=== PATIENT | female | born 1980 | race African-American/Black ===

== ENCOUNTER 2016-03-14 14:12 | Emergency (ER) ==
[2016-03-14 14:12] VITALS: BMI 30.2
[2016-03-14 14:21] VITALS: BP 144/93; TEMP 97.4
[2016-03-14] MEDS ORDERED: ZOFRAN 4 MG/2 ML IM STA (14:31)
[2016-03-14] MEDS ORDERED: TORADOL IM STA (14:31)
[2016-03-14] MEDS ORDERED: MORPHINE 4 MG/ML SYRINGE IM STA (14:31)
[2016-03-14 14:42] LABS: BASOPHILS % (AUTO) 0.5 % (0.0-3.0); EOSINOPHILS # (AUTO) 0.1 K/ul (0.0-0.7); EOSINOPHILS % (AUTO) 1.5 % (0.0-7.0); HEMATOCRIT 43.9 % (37.0-47.0); HEMOGLOBIN 14.7 g/dl (12.0-16.0); IMMATURE GRANULOCYTE % (AUTO) 0.5 % (0.0-5.0); LYMPHOCYTES # (AUTO) 3.7 K/uL (0.60-3.4); LYMPHOCYTES % (AUTO) 45.5 (10.0-50.0); MEAN CORPUSCULAR HEMOGLOBIN 30.4 pg (27.0-31.0); MEAN CORPUSCULAR HGB CONC 33.5 (31.8-35.4); MEAN CORPUSCULAR VOLUME 90.9 fl (81.0-99.0); MONOCYTES # (AUTO) 0.7 K/uL (0.4-2.0); MONOCYTES % (AUTO) 8.2 (0-10); NEUTROPHILS # (AUTO) 3.6 K/ul (2.0-6.9); NEUTROPHILS % (AUTO) 43.8; PLATELET COUNT 278 10^3/uL (140-440); RED BLOOD COUNT 4.83 10^6/ul (4.20-5.40); WHITE BLOOD COUNT 8.13 K/ul (4.6-10.2)
[2016-03-14 14:51] LABS: BILIRUBIN,URINE Negative (NEGATIVE); KETONES,URINE Negative (NEGATIVE); LEUKOCYTE ESTERASE ,URINE Negative (NEGATIVE); NITRITE,URINE Negative (NEGATIVE); PROTEIN,URINE Negative (NEGATIVE); URINE, BLOOD 3+ (NEGATIVE)
[2016-03-14 14:52] LABS: ADD URINE MICROSCOPIC YES
[2016-03-14 14:54] LABS: URINE PREGNANCY INTERNAL QC INTERNAL QC VALID
[2016-03-14 15:03] LABS: ALBUMIN/GLOBULIN RATIO 1.14; ANION GAP 13.2; BILIRUBIN,TOTAL 0.32 mg/dL (0.00-1.20); BUN/CREATININE RATIO 13.08; CALCIUM 9.3 mg/dL (8.2-10.2); CREATININE 1.07 mg/dL (0.60-1.30); POTASSIUM 4.2 mmol/L (3.5-5.10); TOTAL PROTEIN 7.5 g/dL (6.4-8.2)
--- NOTE | 2016-03-14 15:22 | CT ---
EXAM: CT Abdomen without contrast. CT Pelvis without contrast. HISTORY: Left flank pain. Left lower quadrant pain. COMPARISON: 09/17/2014. TECHNIQUE: Multiple axial images of the abdomen and pelvis were obtained without intravenous contra st. Images were reformatted in the coronal plane. FINDINGS: Please note that evaluation of the abdominal and pelvic structures is limited due to lack of intravenous contrast. The lung bases are clear. No acute osseous abnormality identified. The liver, gallbladder, pancreas, spleen, and adrenal glands demonstrate normal contour. Right kidn ey appears normal. There is mild left hydronephrosis/hydroureter secondary to a 0.3-0.4 cm obstruct ing calculus in the distal left ureter just above ureteral vesicle junction. Additional 0.2 cm left renal calculus is present. Small hiatal hernia noted. There is no evidence for bowel obstruction. The appendix is normal. Ve ntral abdominal wall mesh noted above the level of the umbilicus. There is a small fat-containing h ernia near the level of the umbilicus. Uterus demonstrates normal contour. Urinary bladder is andreia apsed. No free fluid or free air identified. IMPRESSION: A 0.3-0.4 cm obstructing calculus in the distal left ureter causing mild left hydronephrosis. Addit ional left nephrolithiasis.
[2016-03-14] MEDS ORDERED: FLOMAX PO STA (15:25)
--- NOTE | 2016-03-14 15:26 | ED.PDOC ---
General ED Provider: Dr. KOTA VARGHESE-ER Chief Complaint: Abdominal Pain Stated Complaint: i think i have a kidney stone Time Seen by Physician: 14:15 Mode of Arrival: Walk-In Information Source: Patient Exam Limitations: No limitations Primary Care Provider: GILLES HORN Nursing and Triage Documentation Reviewed and Agree: Yes GI Complaint Exam - Abdominal Pain Complaint/Exam Onset: Gradual Duration: several hours Symptoms Are: Still present Timing: Constant Initial Severity: Mild Current Severity: Moderate Location of Pain: Discrete, LLQ Radiates To: Reports: Back, Flank Character: Reports: Dull, Aching Aggravating: Reports: None Alleviating: Reports: None Associated Signs and Symptoms: Reports: Back pain. Denies: Diaphoresis, Fever, Cough, Chest pain, Dizziness, Constipation, Blood in stool, Dysuria, Urinary frequency, Decreased urine output, Decreased appetite, Vaginal bleeding, Vaginal discharge, Nausea, Vomiting, Diarrhea, Sore throat, Decreased activity AAA Risk Factors: Reports: None Cardiac Risk Factors: Reports: None Ectopic Risk Factors: Reports: None Ovarian Torsion Risk Factors: Reports: Reproductive age Related Surgical History: Reports: Kidney Stones Patient Rh Status: Unknown Abdominal Findings: Present: None Differential Diagnoses: Renal Colic, Ureteral Stone Review of Systems - Review Of Systems Constitutional: Reports: No symptoms Eyes: Reports: No symptoms Ears, Nose, Mouth, Throat: Reports: No symptoms Respiratory: Reports: No symptoms Cardiac: Reports: No symptoms GI: Reports: Abdominal pain : Reports: Flank pain, Pain, Urgency Musculoskeletal: Reports: No symptoms Skin: Reports: No symptoms Neurological: Reports: No symptoms Endocrine: Reports: No symptoms Hematologic/Lymphatic: Reports: No symptoms All Other Systems: Reviewed and Negative Past Medical History - Past Medical History Endocrine: Reports: Unknown Cardiovascular: Reports: Unknown Respiratory: Reports: Unknown Hematological: Reports: Unknown Gastrointestinal: Reports: Unknown Genitourinary: Reports: Unknown Neuro/Psych: Reports: Unknown Musculoskeletal: Reports: Unknown Cancer: Reports: Unknown Last Menstrual Period: now - Surgical History General Surgical History: Reports: Unknown - Family History Family History: Reports: Unknown - Social History Smoking Status: Current some day smoker Hx Substance Use: No Alcohol Screening: None Lives: With family Physical Exam - Physical Exam Appearance: Well-appearing, No pain distress, Well-nourished Pain Distress: Moderate Eyes: MAR, EOMI, Conjunctiva clear ENT: Ears normal Neck: Supple Respiratory: Airway patent, Breath sounds clear, Breath sounds equal, Respirations nonlabored Cardiovascular: RRR GI/: Soft, Nontender, No masses, Bowel sounds normal, No Organomegaly Musculoskeletal: Normal strength, ROM intact, No edema, No calf tenderness Skin: Warm Neurological: Sensation intact, Motor intact, Reflexes intact, Cranial nerves intact, Alert, Oriented Psychiatric: Affect appropriate, Mood appropriate Re-Evaluation - Re-Evaluation Time of Re-Evaluation: 15:30 Status: Improved Vital Signs Stable: Yes Pain Level: 1 Appearance: NAD Lungs: Clear Skin: Warm and Dry Neuro: Alert and Oriented X3 CV: RRR Critical Care Note - Critical Care Note Total Time (mins): 0 Course - Course Hematology/Chemistry: 03/14/16 14:35 03/14/16 14:35 Orders, Labs, Meds: Lab Review 03/14/16 03/14/16 14:20 14:35 WBC 8.13 RBC 4.83 Hgb 14.7 Hct 43.9 MCV 90.9 MCH 30.4 MCHC 33.5 RDW Coeff of Aftab 12.8 Plt Count 278 Immature Gran % (Auto) 0.5 Neut % (Auto) 43.8 Lymph % (Auto) 45.5 [place] % (Auto) 8.2 Eos % (Auto) 1.5 Baso % (Auto) 0.5 Immature Gran # (Auto) 0.0 Neut # 3.6 Lymph # 3.7 H [place] # 0.7 Eos # 0.1 Baso # 0.0 Sodium 140 Potassium 4.2 Chloride 105 Carbon Dioxide 26 Anion Gap 13.2 BUN 14 Creatinine 1.07 Estimated GFR (MDRD) 72.00 BUN/Creatinine Ratio 13.08 Glucose 93 Calcium 9.3 Total Bilirubin 0.32 AST 16 ALT 14 Alkaline Phosphatase 53 Total Protein 7.5 Albumin 4.0 Globulin 3.5 Albumin/Globulin Ratio 1.14 Amylase 64 Lipase 19 Urine Color Yellow Urine Clarity Clear Urine pH 6.0 Ur Specific [place] 1.025 Urine Protein Negative Urine Glucose (UA) Negative Urine Ketones Negative Urine Blood 3+ Urine Nitrite Negative Urine Bilirubin Negative Urine Urobilinogen 0.2 Ur Leukocyte Esterase Negative Urine Microscopic RBC 50-100 Ur Squamous Epith Cells 5-10 Urine Test Negative Orders Category Date Time Status Strain Urine [ED STRAIN URINE] .ONCE EMERGENCY 03/14/16 15:27 Active AMYLASE Stat LAB 03/14/16 14:35 Completed CBC W/ AUTO DIFF Stat LAB 03/14/16 14:35 Completed COMPREHENSIVE METABOLIC PANEL Stat LAB 03/14/16 14:35 Completed LIPASE Stat LAB 03/14/16 14:35 Completed URINALYSIS C & S IF INDICATED Stat LAB 03/14/16 14:20 Completed URINE Stat LAB 03/14/16 14:20 Completed Ketorolac Tromethamine [Toradol] MEDS 03/14/16 14:31 Discontinued 60 mg IM ONCE STA Morphine Sulfate [Morphine 4 mg/ml Syringe] MEDS 03/14/16 14:31 Discontinued 4 mg IM ONCE STA Ondansetron HCl/Pf [Zofran 4 mg/2 ml] MEDS 03/14/16 14:31 Discontinued 4 mg IM ONCE STA Tamsulosin HCl [Flomax] MEDS 03/14/16 15:25 Stat 0.4 mg PO ONCE STA CT ABDOMEN/PELVIS WO CONTRAST Stat RADS 03/14/16 14:31 Completed Medications Generic Name Dose Route Start Last Admin Trade Name Freq PRN Reason Stop Dose Admin Tamsulosin HCl 0.4 mg 03/14/16 15:25 Flomax PO 03/14/16 15:26 ONCE STA Discontinued Medications Generic Name Dose Route Start Last Admin Trade Name Freq PRN Reason Stop Dose Admin Ketorolac Tromethamine 60 mg 03/14/16 14:31 03/14/16 14:39 Toradol IM 03/14/16 14:32 60 mg ONCE STA Administration Morphine Sulfate 4 mg 03/14/16 14:31 03/14/16 14:42 Morphine 4 Mg/Ml Syringe IM 03/14/16 14:32 4 mg ONCE STA Administration Ondansetron HCl 4 mg 03/14/16 14:31 03/14/16 14:42 Zofran 4 Mg/2 Ml IM 03/14/16 14:32 4 mg ONCE STA Administration Vital Signs: Temp Pulse Resp BP Pulse Ox 03/14/16 14:12 97.4 F L 89 22 144/93 H 98 Departure - Departure Time of Disposition: 15:30 Disposition: HOME SELF-CARE Discharge Problem: Kidney stone on left side Instructions: Kidney Stones (ED), Renal Colic (ED), How to Strain Your Urine ( ED) Condition: Good Pt referred to PMD for follow-up: Yes Additional Instructions: norco 7.5mg q 4hrs prn pain #15--flomax 0.4mg q daily #3--fluids..strain all urine--recheck wtih pcp on tuesday if not passed Allergies/Adverse Reactions: Allergies amoxicillin Adverse Reaction (Verified 03/14/16 14:17) Home Medications: Ambulatory Orders 1 [No Reported Medications] 03/14/16 Disposition Discussed With: Patient, Family
== END 2016-03-14 15:49 | disposition home or self-care (01) ==
LOC: ED 14:12
DX: N20.0 Calculus of kidney (principal); F17.210 Nicotine dependence, cigarettes, uncomplicated; Z87.442 Personal history of urinary calculi
CPT/HCPCS: 36415; 80053; 81001; 81025; 82150; 83690; 85025; 96372; 99283

== ENCOUNTER 2017-02-20 11:02 | Emergency (ER) ==
[2017-02-20 11:09] VITALS: TEMP 98.2; BMI 31.7
[2017-02-20 11:34] VITALS: BP 121/88
[2017-02-20 11:46] LABS: BASOPHILS % (AUTO) 0.3 % (0.0-3.0); EOSINOPHILS # (AUTO) 0.1 K/ul (0.0-0.7); EOSINOPHILS % (AUTO) 1.4 % (0.0-7.0); HEMATOCRIT 43.2 % (37.0-47.0); HEMOGLOBIN 15.2 g/dl (12.0-16.0); IMMATURE GRANULOCYTE % (AUTO) 0.6 % (0.0-5.0); LYMPHOCYTES # (AUTO) 1.4 K/uL (0.60-3.4); LYMPHOCYTES % (AUTO) 38.4 (10.0-50.0); MEAN CORPUSCULAR HEMOGLOBIN 31.3 pg (27.0-31.0); MEAN CORPUSCULAR HGB CONC 35.2 (31.8-35.4); MEAN CORPUSCULAR VOLUME 88.9 fl (81.0-99.0); MONOCYTES # (AUTO) 0.5 K/uL (0.4-2.0); MONOCYTES % (AUTO) 12.4 (0-10); NEUTROPHILS # (AUTO) 1.7 K/ul (2.0-6.9); NEUTROPHILS % (AUTO) 46.9; PLATELET COUNT 231 10^3/uL (140-440); RED BLOOD COUNT 4.86 10^6/ul (4.20-5.40); WHITE BLOOD COUNT 3.62 K/ul (4.6-10.2)
--- NOTE | 2017-02-20 11:48 | ED.PDOC ---
General ED Provider: Dr. CARSON CERNA Chief Complaint: Chest Wall Injury/Pain Stated Complaint: Patient complains of epigastric pain radiating to the back today that started this morning now gone. Yesterday has > 10 eposides of vomiting and diarrhea. Time Seen by Physician: 11:30 Mode of Arrival: Walk-In Information Source: Patient Exam Limitations: No limitations Primary Care Provider: GILLES HORN Nursing and Triage Documentation Reviewed and Agree: Yes GI Complaint Exam - Vomiting/Diarrhea Complaint/Exam Onset/Duration: 3 days Symptoms Are: Still present (but better) Episodes of Vomiting over last 24 Hours: 10 Episodes of Diarrhea Over Last 24 Hours: 10 Initial Severity: Severe Current Severity: Moderate Character of Vomiting: Reports: Non-bilious Character of Diarrhea: Reports: Watery Aggravating: Reports: Food Alleviating: Reports: None Associated Signs and Symptoms: Reports: Cramping. Denies: Dizziness, Light- headedness, Melena, Hematemesis, Fever, Abdominal pain Recent Positive Test: No Use of Oral Contraceptives: No Use of Depoprovera: No Non-GI Risk Factors: Reports: None Surgical Obstruction Risk Factors: Reports: None Related Surgical History: Reports: None Abdominal Findings: Present: None Rectal Exam: Present: Normal Findings [place] Respirations Present: Yes Differential Diagnoses: Viral Gastroenteritis Review of Systems - Review Of Systems Constitutional: Reports: No symptoms Eyes: Reports: No symptoms Ears, Nose, Mouth, Throat: Reports: No symptoms Respiratory: Reports: No symptoms Cardiac: Reports: No symptoms GI: Reports: No symptoms : Reports: No symptoms Musculoskeletal: Reports: No symptoms Skin: Reports: No symptoms Neurological: Reports: No symptoms Endocrine: Reports: No symptoms Hematologic/Lymphatic: Reports: No symptoms All Other Systems: Reviewed and Negative Past Medical History - Past Medical History Previously Healthy: Yes Endocrine: Reports: None Cardiovascular: Reports: None Respiratory: Reports: None Hematological: Reports: None Gastrointestinal: Reports: GERD Genitourinary: Reports: None Neuro/Psych: Reports: None Musculoskeletal: Reports: None Cancer: Reports: None Last Menstrual Period: last month - Surgical History General Surgical History: Reports: None - Family History Family History: Reports: None - Social History Smoking Status: Current every day smoker, Light tobacco smoker Hx Substance Use: No Alcohol Screening: None Physical Exam - Physical Exam Appearance: Ill-appearing, Obese Ill-appearing: Mild Pain Distress: None Eyes: MAR, EOMI, Conjunctiva clear ENT: Ears normal Neck: Supple Respiratory: Airway patent, Breath sounds clear, Breath sounds equal, Respirations nonlabored Cardiovascular: RRR, Pulses normal, No rub, No murmur GI/: Soft, Nontender, No masses, Bowel sounds normal, No Organomegaly Musculoskeletal: Normal strength, ROM intact, No edema, No calf tenderness Skin: Warm, Dry, Normal color Neurological: Sensation intact, Motor intact, Reflexes intact, Alert, Oriented Psychiatric: Affect appropriate Critical Care Note - Critical Care Note Total Time (mins): 0 Course - Course Hematology/Chemistry: 02/20/17 11:40 02/20/17 11:40 Orders, Labs, Meds: Lab Review 02/20/17 02/20/17 02/20/17 11:15 11:15 11:40 WBC 3.62 L RBC 4.86 Hgb 15.2 Hct 43.2 MCV 88.9 MCH 31.3 H MCHC 35.2 RDW Coeff of Aftab 12.6 Plt Count 231 Immature Gran % (Auto) 0.6 Neut % (Auto) 46.9 Lymph % (Auto) 38.4 [place] % (Auto) 12.4 H Eos % (Auto) 1.4 Baso % (Auto) 0.3 Immature Gran # (Auto) 0.0 Neut # 1.7 L Lymph # 1.4 [place] # 0.5 Eos # 0.1 Baso # 0.0 Sodium Potassium Chloride Carbon Dioxide Anion Gap BUN Creatinine Estimated GFR (MDRD) BUN/Creatinine Ratio Glucose Calcium Total Bilirubin AST ALT Alkaline Phosphatase Total Protein Albumin Globulin Albumin/Globulin Ratio Urine Color Yellow Urine Clarity Slightly Urine pH 6.0 Ur Specific [place] 1.025 Urine Protein Trace Urine Glucose (UA) Negative Urine Ketones Negative Urine Blood Trace-intact Urine Nitrite Negative Urine Bilirubin Negative Urine Urobilinogen 0.2 Ur Leukocyte Esterase Negative Urine Microscopic RBC 2-5 Urine Microscopic WBC 2-5 Ur Squamous Epith Cells 20-30 Influenza A (Rapid) Negative Influenza B (Rapid) Negative 02/20/17 11:40 WBC RBC Hgb Hct MCV MCH MCHC RDW Coeff of Aftab Plt Count Immature Gran % (Auto) Neut % (Auto) Lymph % (Auto) [place] % (Auto) Eos % (Auto) Baso % (Auto) Immature Gran # (Auto) Neut # Lymph # [place] # Eos # Baso # Sodium 138 Potassium 3.4 L Chloride 104 Carbon Dioxide 24 Anion Gap 13.4 BUN 9 Creatinine 0.80 Estimated GFR (MDRD) 100.00 BUN/Creatinine Ratio 11.25 Glucose 137 H Calcium 8.9 Total Bilirubin 0.43 AST 15 ALT 14 Alkaline Phosphatase 49 Total Protein 7.2 Albumin 3.3 L Globulin 3.9 Albumin/Globulin Ratio 0.85 Urine Color Urine Clarity Urine pH Ur Specific [place] Urine Protein Urine Glucose (UA) Urine Ketones Urine Blood Urine Nitrite Urine Bilirubin Urine Urobilinogen Ur Leukocyte Esterase Urine Microscopic RBC Urine Microscopic WBC Ur Squamous Epith Cells Influenza A (Rapid) Influenza B (Rapid) Orders Category Date Time Status ED IV/MEDIPORT/POWERPORT .ONCE EMERGENCY 02/20/17 11:25 Active CBC W/ AUTO DIFF Stat LAB 02/20/17 11:40 Completed CMP [COMPREHENSIVE METABOLIC PANEL] Stat LAB 02/20/17 11:40 Completed MOLECULAR GROUP A STREP Stat LAB 02/20/17 11:15 Results RAPID FLU A/B Stat LAB 02/20/17 11:15 Completed STREP SCREEN Stat LAB 02/20/17 11:15 Results URINALYSIS C & S IF INDICATED Stat LAB 02/20/17 11:15 Completed 0.9 % Sodium Chloride [Saline Flush] MEDS 02/20/17 11:25 Discontinued 1 syr IVF PRN PRN Ondansetron HCl/Pf [Zofran 4 mg/2 ml] MEDS 02/20/17 11:58 Discontinued 4 mg IVP ONCE STA Potassium Chloride [K-Dur] MEDS 02/20/17 12:59 Discontinued 20 meq PO ONCE STA Sodium Chloride 0.9% [Sodium Chloride] 1,000 ml MEDS 02/20/17 11:58 Discontinued IV BOLUS Medications Discontinued Medications Generic Name Dose Route Start Last Admin Trade Name Freq PRN Reason Stop Dose Admin Sodium Chloride 1,000 mls @ 1,000 mls/hr 02/20/17 11:58 02/20/17 12:09 Sodium Chloride IV 02/20/17 12:57 1,000 mls/hr BOLUS STA Administration Ondansetron HCl 4 mg 02/20/17 11:58 02/20/17 12:09 Zofran 4 Mg/2 Ml IVP 02/20/17 11:59 4 mg ONCE STA Administration Potassium Chloride 20 meq 02/20/17 12:59 02/20/17 13:07 K-Dur PO 02/20/17 13:00 20 meq ONCE STA Administration Sodium Chloride 1 syr 02/20/17 11:25 02/20/17 12:09 Saline Flush IVF 1 syr PRN PRN Administration To flush IV Vital Signs: Temp Pulse Resp BP Pulse Ox 02/20/17 11:33 75 121/88 99 02/20/17 11:03 98.2 F 89 20 145/100 H 97 Departure - Departure Time of Disposition: 13:30 Disposition: HOME SELF-CARE Discharge Problem: Acute gastroenteritis Instructions: Gastroenteritis (ED) Condition: Stable Pt referred to PMD for follow-up: Yes Additional Instructions: Push fluids Follow up with PCP in 3 days Prescriptions: Dicyclomine HCl [Bentyl] 10 mg PO TID PRN #20 capsule PRN Reason: Abdominal Pain Ondansetron HCl [Zofran Tab] 4 mg PO Q8H PRN #14 tablet PRN Reason: Nausea / Vomiting Allergies/Adverse Reactions: Allergies amoxicillin Adverse Reaction (Verified 03/14/16 14:17) Penicillins Adverse Reaction (Verified 02/20/17 11:11) Home Medications: Ambulatory Orders Dicyclomine HCl [Bentyl] 10 mg PO TID PRN #20 capsule 02/20/17 Ondansetron HCl [Zofran Tab] 4 mg PO Q8H PRN #14 tablet 02/20/17 Disposition Discussed With: Patient
[2017-02-20] MEDS ORDERED: SODIUM CHLORIDE 1,000 ML IV STA (11:58)
[2017-02-20] MEDS ORDERED: ZOFRAN 4 MG/2 ML IVP STA (11:58)
[2017-02-20 12:09] LABS: ALBUMIN 3.3 g/dL (3.4-5.0); ALBUMIN/GLOBULIN RATIO 0.85; ANION GAP 13.4; BILIRUBIN,TOTAL 0.43 mg/dL (0.00-1.20); BUN/CREATININE RATIO 11.25; CALCIUM 8.9 mg/dL (8.2-10.2); CREATININE 0.8 mg/dL (0.60-1.30); POTASSIUM 3.4 mmol/L (3.5-5.10); TOTAL PROTEIN 7.2 g/dL (6.4-8.2)
[2017-02-20 12:10] LABS: BILIRUBIN,URINE Negative (NEGATIVE); KETONES,URINE Negative (NEGATIVE); LEUKOCYTE ESTERASE ,URINE Negative (NEGATIVE); NITRITE,URINE Negative (NEGATIVE); PROTEIN,URINE Trace (NEGATIVE); URINE, BLOOD Trace-intact (NEGATIVE)
[2017-02-20 12:12] LABS: ADD URINE MICROSCOPIC YES
[2017-02-20 12:28] LABS: FLU INTERNAL QC INTERNAL QC VALID; RAPID FLU A NEGATIVE (NEGATIVE); RAPID FLU B NEGATIVE (NEGATIVE)
[2017-02-20] MEDS ORDERED: K-DUR PO STA (12:59)
== END 2017-02-20 13:33 | disposition home or self-care (01) ==
LOC: ED 11:02
DX: K52.9 Noninfective gastroenteritis and colitis, unspecified (principal); F17.210 Nicotine dependence, cigarettes, uncomplicated
CPT/HCPCS: 36415; 80053; 81001; 85025; 87651; 87804; 87880; 96361; 96374; 99283

== ENCOUNTER 2017-03-18 07:29 | Outpatient (CLI) ==
--- NOTE | 2017-03-18 08:47 | US ---
Exam: Wesley-scale and color Doppler ultrasonographic evaluation of the abdomen. Limited abdominal ul trasound Comparison: CT abdomen pelvis performed 03/14/2016. Reason for exam: Abdominal pain after eating. FINDINGS: The liver measures approximately 10.5 cm in length with a heterogeneous appearing echotext ure. There is normal antegrade portal venous flow without ductal dilatation or perihepatic free fluid. There is a 1.54 x 2.01 x 1.75 cm region of the hypoechoic echogenicity adjacent to the gallbladder th at likely represents focal fatty sparing. The gallbladder wall measures 0.26 cm which is within normal limits. The gallbladder wall is irregul kong shaped with a pharyngeal cap and appears folded on itself. No obvious intraluminal sludge, stone or polyp. The common bile duct measures 0.44 cm without evidence of intraluminal stone or polyp. The partially imaged pancreas appears grossly unremarkable. The right kidney measures approximately 9.84 x 3.88 x 4.50 cm with normal appearing echotexture, no h ydronephrosis, and no nephrolithiasis. Impression: 1. Heterogeneous appearing hepatic echotexture with a 2 cm region of hypo echogenicity adjacent to t he gallbladder. Imaging findings likely represent focal fatty sparing although the evaluation is inc omplete. If clinical concern exists, CT examination of the abdomen pelvis with contrast or MRI may b e performed for further characterization. 2. Otherwise, no acute ultrasonographic findings are seen within the partially imaged abdomen.
== END 2017-03-18 07:30 | disposition home or self-care (01) ==
LOC: RAD 07:29
PROVIDERS: ATTEND Internal Medicine
DX: R10.9 Unspecified abdominal pain (principal); K21.9 Gastro-esophageal reflux disease without esophagitis

== ENCOUNTER 2017-03-23 08:05 | Outpatient (CLI) ==
--- NOTE | 2017-03-23 10:22 | NM ---
EXAM: Hepatobiliary scan HISTORY: Nausea and abdominal pain. COMPARISON: None of this type. PROCEDURE: The patient was injected with 5.3 mCi of 99mTc mebrofenin intravenously. Images of the ab domen were obtained at 5 min intervals for 30 minutes. Additional images were obtained at 45 minute s and 1 hour. The patient was then injected with 1.8 mcg of CCK by slow infusion while images of the gallbladder were obtained to assess gallbladder contraction. The patient reported mild nausea with C CK. FINDINGS: Sequential images demonstrate normal uptake of tracer into the liver. Activity is seen in the intrahepatic biliary ducts at about 10 minutes. The activity appears in the gallbladder at about 15 minutes. Subsequent images demonstrate increasing activity in the gallbladder. Activity first a ppears in the small bowel following CCK. The gallbladder ejection fraction is 65% . IMPRESSION: 1.Normal hepatobiliary scan. 2.The gallbladder ejection fraction is 65% (normal).
== END 2017-03-23 08:06 | disposition home or self-care (01) ==
LOC: RAD 08:05
PROVIDERS: ATTEND Internal Medicine
DX: R10.9 Unspecified abdominal pain (principal); R11.2 Nausea with vomiting, unspecified

== ENCOUNTER 2017-08-14 03:15 | Emergency (ER) ==
[2017-08-14 03:28] VITALS: BP 124/88; TEMP 97.4; BMI 33.1
[2017-08-14] MEDS ORDERED: GI COCKTAIL PO STA (03:53)
--- NOTE | 2017-08-14 04:15 | ED.PDOC ---
General ED Provider: Dr. CARSON CERNA Chief Complaint: Chest Pain Stated Complaint: 2 hour history of lower mid chest and epigastric area that started while she was sleeping. Pain radiates to the back. Time Seen by Physician: 03:30 Mode of Arrival: Walk-In Information Source: Patient Primary Care Provider: ALAN HAYNES Nursing and Triage Documentation Reviewed and Agree: Yes Reviewed sepsis parameters & appropriate labs ordered?: No System Inflammatory Response Syndrome: Not Applicable Sepsis Protocol: For patient's 13 years and over: Temp is 96.8 and below OR 101 and greater Pulse >90 BPM Resp >20/minute Acutely Altered Mental Status Are patient's symptoms suggestive of a new infection, such as: -Pneumonia -Skin, Soft Tissue -Endocarditis -UTI -Bone, Joint Infection -Implantable Device -Acute Abdominal Infection -Wound Infection -Meningitis -Blood Stream Catheter Infection -Unknown Cardiovascular Complaint Exam - Chest Pain Complaint/Exam Onset: Sudden Duration: 2 hours Symptoms Are: Still present Timing: Constant Initial Severity: Moderate Current Severity: Moderate Location: Reports: Lower sternal Pain Radiates: Reports: Back Character: Reports: Burning Aggravating: Reports: None Alleviating: Reports: None Associated Signs and Symptoms: Reports: Nausea, Abdominal pain. Denies: Diaphoresis, Vomiting, Fever, Palpitations, Cough, Hemoptysis, Back pain, Dizziness, Short of air, Calf pain, Calf swelling TAD Risk Factors: Reports: None Pulmonary Embolism Risk Factors: Reports: None Recent Stress Test: No Recent Echo/LV Function: No JVD Present: No Subcutaneous Emphysema Present: No Diminshed Breath Sounds: No If Risk Factors for AMI/ACS Consider: EKG, Cardiac Enzymes, Aspirin Differential Diagnoses: Acute RI, GI Diseasae, Pulmonary Embolism Quality Indicators For Acute RI or Cardiac Chest Pain: EKG in 10min. Review of Systems - Review Of Systems Constitutional: Reports: No symptoms Eyes: Reports: No symptoms Ears, Nose, Mouth, Throat: Reports: No symptoms Respiratory: Reports: No symptoms Cardiac: Reports: Chest pain GI: Reports: Abdominal pain, Nausea : Reports: No symptoms Musculoskeletal: Reports: No symptoms Skin: Reports: No symptoms Neurological: Reports: No symptoms Endocrine: Reports: No symptoms Hematologic/Lymphatic: Reports: No symptoms All Other Systems: Reviewed and Negative Past Medical History - Past Medical History Previously Healthy: Yes Endocrine: Reports: None Cardiovascular: Reports: None Respiratory: Reports: None Hematological: Reports: None Gastrointestinal: Reports: GERD Genitourinary: Reports: None Neuro/Psych: Reports: None Musculoskeletal: Reports: None Cancer: Reports: None Last Menstrual Period: 1 WEEK AGO - Surgical History General Surgical History: Reports: None - Family History Family History: Reports: None - Social History Smoking Status: Current every day smoker, Light tobacco smoker Hx Substance Use: No Alcohol Screening: Occasionally - Immunizations Tetanus Shot up to Date: Yes Physical Exam - Physical Exam Appearance: Ill-appearing, Obese Ill-appearing: Mild Pain Distress: Moderate Eyes: MAR, EOMI, Conjunctiva clear Neck: Supple Respiratory: Airway patent, Breath sounds clear, Breath sounds equal, Respirations nonlabored Cardiovascular: RRR, Pulses normal, No rub, No murmur GI/: Soft, Tender (mild epigastric area tenderness ) Skin: Warm, Dry Neurological: Alert, Oriented Psychiatric: Anxious Re-Evaluation - Re-Evaluation Time of Re-Evaluation: 04:18 Status: Improved (with GI cocktail ) Vital Signs Stable: Yes Pain Level: better Appearance: NAD Critical Care Note - Critical Care Note Total Time (mins): 30 Course - Course Hematology/Chemistry: 08/14/17 03:55 08/14/17 03:55 Orders, Labs, Meds: Lab Review 08/14/17 08/14/17 08/14/17 03:55 03:55 03:55 WBC 8.37 RBC 4.41 Hgb 13.9 Hct 39.7 MCV 90.0 MCH 31.5 H MCHC 35.0 RDW Coeff of Aftab 12.6 Plt Count 224 Immature Gran % (Auto) 0.4 Neut % (Auto) 51.8 Lymph % (Auto) 37.2 [place] % (Auto) 8.0 Eos % (Auto) 2.0 Baso % (Auto) 0.6 Immature Gran # (Auto) 0.0 Neut # (Auto) 4.3 Lymph # (Auto) 3.1 [place] # (Auto) 0.7 Eos # (Auto) 0.2 Baso # (Auto) 0.1 D-Dimer (Manual) Sodium 137 Potassium 3.8 Chloride 103 Carbon Dioxide 23 Anion Gap 14.8 BUN 11 Creatinine 0.77 Estimated GFR (MDRD) 103.00 BUN/Creatinine Ratio 14.28 Glucose 122 H Calcium 8.9 Total Bilirubin 0.3 AST 16 ALT 16 Alkaline Phosphatase 54 Total Creatine Kinase 105 Troponin I < 0.0100 B-Natriuretic Peptide < 10 Total Protein 6.8 Albumin 3.3 L Globulin 3.5 Albumin/Globulin Ratio 0.94 08/14/17 04:20 WBC RBC Hgb Hct MCV MCH MCHC RDW Coeff of [place]ftab Plt Count Immature Gran % (Auto) Neut % (Auto) Lymph % (Auto) [place] % (Auto) Eos % (Auto) Baso % (Auto) Immature Gran # (Auto) Neut # (Auto) Lymph # (Auto) [place] # (Auto) Eos # (Auto) Baso # (Auto) D-Dimer (Manual) 187.79 Sodium Potassium Chloride Carbon Dioxide Anion Gap BUN Creatinine Estimated GFR (MDRD) BUN/Creatinine Ratio Glucose Calcium Total Bilirubin AST ALT Alkaline Phosphatase Total Creatine Kinase Troponin I B-Natriuretic Peptide Total Protein Albumin Globulin Albumin/Globulin Ratio Orders Category Date Time Status EKG-(ED ONLY) Stat CARDIO 08/14/17 03:44 Ordered B-TYPE NATRIURETIC PEPTIDE Stat LAB 08/14/17 03:55 Completed CBC W/ AUTO DIFF Stat LAB 08/14/17 03:55 Completed COMPREHENSIVE METABOLIC PANEL Stat LAB 08/14/17 03:55 Completed CREATINE KINASE Stat LAB 08/14/17 03:55 Completed D-DIMER Stat LAB 08/14/17 04:20 Completed TROPONIN I Stat LAB 08/14/17 03:55 Completed Mag-Al Plus//Lidocaine [Gi Cocktail] MEDS 08/14/17 03:53 Discontinued 30 ml PO ONCE STA CHEST, 1V AP ONLY Stat RADS 08/14/17 03:44 Taken Medications Discontinued Medications Generic Name Dose Route Start Last Admin Trade Name Freq PRN Reason Stop Dose Admin Al Hydroxide/Mg Hydroxide 30 ml 08/14/17 03:53 08/14/17 04:03 Gi Cocktail PO 08/14/17 03:54 30 ml ONCE STA Administration Vital Signs: Temp Pulse Resp BP Pulse Ox 08/14/17 03:16 97.4 F L 83 18 124/88 96 RELL Risk Score Age >/= 65: No >/= 3 CAD Risk Factors: No Known CAD (Stenosis >/= 50%): No ASA Use in Past 7 Days: No Severe Angina (>/= 2 episodes in 24 hours): No EKG ST Changes >/= 0.5mm: No Postive Cardiac Marker: No RELL Total Score: 0 RELL Risk Score: Risk Score Odds of by 30D 0 0.1 (0.1-0.2) 1 0.3 (0.2-0.3) 2 0.4 (0.3-0.5) 3 0.7 (0.6-0.9) 4 1.2 (1.0-1.5) 5 2.2 (1.9-2.6) 6 3.0 (2.5-3.6) 7 4.8 (3.8-6.1) Departure - Departure Time of Disposition: 05:10 Disposition: HOME SELF-CARE Discharge Problem: Dyspepsia Instructions: Noncardiac Chest Pain (ED), Indigestion (ED) Condition: Stable Pt referred to PMD for follow-up: Yes IPMP verified?: Yes Additional Instructions: Continue home medications for GERD Follow up with PCP in 2-3 days Return if worse Allergies/Adverse Reactions: Allergies amoxicillin Adverse Reaction (Verified 08/14/17 03:27) Penicillins Adverse Reaction (Verified 08/14/17 03:27) Home Medications: Ambulatory Orders 1 [No Reported Medications] 08/14/17 Disposition Discussed With: Patient, Family
--- NOTE | 2017-08-15 07:45 | DI ---
EXAM: Chest one view, frontal view only. HISTORY: Chest pain. COMPARISON: 09/14/2013. FINDINGS: The heart size is normal. There is no pulmonary vascular congestion. The lungs are clear . No pleural effusion or pneumothorax is seen. No acute osseous abnormality is identified. Since t he prior study, there has been no significant interval change. IMPRESSION: No acute cardiopulmonary process.
== END 2017-08-14 05:10 | disposition home or self-care (01) ==
LOC: ED 03:15
DX: R10.13 Epigastric pain (principal); R07.9 Chest pain, unspecified; R11.0 Nausea; F17.210 Nicotine dependence, cigarettes, uncomplicated
CPT/HCPCS: 36415; 80053; 82550; 83880; 84484; 85025; 85379; 93005; 93010; 99283

== ENCOUNTER 2018-04-03 04:14 | Emergency (ER) ==
[2018-04-03 04:17] VITALS: BP 140/95; TEMP 98.2; BMI 29.0
[2018-04-03] MEDS ORDERED: TORADOL IVP STA (04:39)
--- NOTE | 2018-04-03 05:44 | CT ---
EXAM: CT of the abdomen and pelvis without contrast. HISTORY: Abdominal and flank pain. PROCEDURE: Contiguous axial CT images of the abdomen and pelvis without contrast with coronal and sa gittal reformats. FINDINGS: The liver, gallbladder, pancreas, spleen and adrenal glands are normal in appearance. Ther e are nonobstructive calcifications in both kidneys measuring up to 4 mm. No hydronephrosis. The ur eters are incompletely visualized. There is a phlebolith in the right gonadal vein. The abdominal a antony is normal in appearance. There is a small hiatal hernia. The visualized loops of bowel and yang endix are normal in appearance. No free fluid or free air in the abdomen or pelvis. The bladder is minimally filled which limits the evaluation. The uterus is unremarkable. There are phleboliths in the lower pelvis. There is surgical mesh in the anterior abdomen consistent with a ventral hernia re pair. There is a small umbilical hernia containing only fat. The bones are unremarkable. Impression: Nonobstructive bilateral nephrolithiasis as described. The ureters are incompletely vis ualized and a nonobstructive ureterolith cannot be excluded. Small hiatal hernia. Ventral hernia repair as described. Umbilical hernia as described.
--- NOTE | 2018-04-03 05:59 | ED.PDOC ---
General ED Provider: Dr. KOTA TORO MD Chief Complaint: Abdominal Pain Stated Complaint: abdominal pain wrapping around my waist Time Seen by Physician: 04:25 Mode of Arrival: Walk-In Information Source: Patient, Family Exam Limitations: No limitations Primary Care Provider: ALAN HAYNES Nursing and Triage Documentation Reviewed and Agree: Yes Does patient meet sepsis criteria?: No If yes, has appropriate treatment been initiated?: Yes System Inflammatory Response Syndrome: Not Applicable Sepsis Protocol: For patient's 13 years and over: Temp is 96.8 and below OR 101 and greater Pulse >90 BPM Resp >20/minute Acutely Altered Mental Status Are patient's symptoms suggestive of a new infection, such as: -Pneumonia -Skin, Soft Tissue -Endocarditis -UTI -Bone, Joint Infection -Implantable Device -Acute Abdominal Infection -Wound Infection -Meningitis -Blood Stream Catheter Infection -Unknown Review of Systems - Review Of Systems Constitutional: Reports: No symptoms, Fever Eyes: Reports: No symptoms Ears, Nose, Mouth, Throat: Reports: No symptoms Respiratory: Reports: No symptoms Cardiac: Reports: No symptoms GI: Reports: Abdominal pain, Nausea : Reports: No symptoms Musculoskeletal: Reports: No symptoms Skin: Reports: No symptoms Neurological: Reports: No symptoms Endocrine: Reports: No symptoms Hematologic/Lymphatic: Reports: No symptoms All Other Systems: Reviewed and Negative Past Medical History - Past Medical History Previously Healthy: Yes Endocrine: Reports: None Cardiovascular: Reports: None Respiratory: Reports: None Hematological: Reports: None Gastrointestinal: Reports: GERD Genitourinary: Reports: None Neuro/Psych: Reports: None Musculoskeletal: Reports: None Cancer: Reports: None Last Menstrual Period: 2 weeks - Surgical History General Surgical History: Reports: None - Family History Family History: Reports: None - Social History Smoking Status: Current every day smoker, Light tobacco smoker Hx Substance Use: No Alcohol Screening: None - Immunizations Tetanus Shot up to Date: Yes Physical Exam - Physical Exam Appearance: Well-appearing, Obese Ill-appearing: Mild Pain Distress: Moderate Eyes: MAR, EOMI, Conjunctiva clear ENT: Ears normal Neck: Supple Respiratory: Airway patent, Breath sounds clear, Breath sounds equal, Respirations nonlabored Cardiovascular: RRR, Pulses normal, No rub, No murmur GI/: Bowel sounds normal, Tender Musculoskeletal: Normal strength, ROM intact, No edema, No calf tenderness Skin: Warm, Dry, Normal color Neurological: Sensation intact, Motor intact, Reflexes intact, Cranial nerves intact, Alert, Oriented Critical Care Note - Critical Care Note Total Time (mins): 0 Course - Course Hematology/Chemistry: 04/03/18 04:40 04/03/18 04:40 Orders, Labs, Meds: Lab Review 04/03/18 04/03/18 04/03/18 04:20 04:40 04:40 WBC 6.66 RBC 5.12 Hgb 15.8 Hct 45.8 MCV 89.5 MCH 30.9 MCHC 34.5 RDW Coeff of Aftab 12.9 Plt Count 276 Immature Gran % (Auto) 0.3 Neut % (Auto) 51.4 Lymph % (Auto) 38.1 [place] % (Auto) 7.7 Eos % (Auto) 2.3 Baso % (Auto) 0.2 Immature Gran # (Auto) 0.0 Neut # (Auto) 3.4 Lymph # (Auto) 2.5 [place] # (Auto) 0.5 Eos # (Auto) 0.2 Baso # (Auto) 0.0 Sodium 135.6 Potassium 3.91 Chloride 101.9 Carbon Dioxide 25.5 Anion Gap 12.11 BUN 14.3 Creatinine 0.84 Estimated GFR (MDRD) 94.00 BUN/Creatinine Ratio 17.02 Glucose 133.3 H Calcium 9.22 Total Bilirubin 0.83 AST 17.6 ALT 15.6 Alkaline Phosphatase 55.0 Total Protein 8.28 H Albumin 4.59 Globulin 3.69 Albumin/Globulin Ratio 1.24 Amylase HCG, Quant < 2.390 Urine Color Yellow Urine Clarity Cloudy Urine pH 6.0 Ur Specific [place] 1.025 Urine Protein 1+ Urine Glucose (UA) Negative Urine Ketones Negative Urine Blood Negative Urine Nitrite Negative Urine Bilirubin Negative Urine Urobilinogen 0.2 Ur Leukocyte Esterase Negative Ur Squamous Epith Cells 30-50 Urine Bacteria 1+ 04/03/18 04:40 WBC RBC Hgb Hct MCV MCH MCHC RDW Coeff of [place]ftab Plt Count Immature Gran % (Auto) Neut % (Auto) Lymph % (Auto) [place] % (Auto) Eos % (Auto) Baso % (Auto) Immature Gran # (Auto) Neut # (Auto) Lymph # (Auto) [place] # (Auto) Eos # (Auto) Baso # (Auto) Sodium Potassium Chloride Carbon Dioxide Anion Gap BUN Creatinine Estimated GFR (MDRD) BUN/Creatinine Ratio Glucose Calcium Total Bilirubin AST ALT Alkaline Phosphatase Total Protein Albumin Globulin Albumin/Globulin Ratio Amylase 73.9 HCG, Quant Urine Color Urine Clarity Urine pH Ur Specific [place] Urine Protein Urine Glucose (UA) Urine Ketones Urine Blood Urine Nitrite Urine Bilirubin Urine Urobilinogen Ur Leukocyte Esterase Ur Squamous Epith Cells Urine Bacteria Orders Category Date Time Status NPO REMINDER: IMAGING ONCE CARE 04/03/18 04:41 Completed IV [ED IV/MEDIPORT/POWERPORT] .ONCE EMERGENCY 04/03/18 04:38 Active AMYLASE Stat LAB 04/03/18 04:40 Completed CBC W/ AUTO DIFF Stat LAB 04/03/18 04:40 Completed COMPREHENSIVE METABOLIC PANEL Stat LAB 04/03/18 04:40 Completed HCG,QUANTITATIVE Stat LAB 04/03/18 04:40 Completed UA [URINALYSIS C & S IF INDICATED] Stat LAB 04/03/18 04:20 Completed URINE CULTURE Stat LAB 04/03/18 04:51 Received 0.9 % Sodium Chloride [Saline Flush] MEDS 04/03/18 04:38 Ordered 1 syr IVF PRN PRN Ketorolac Tromethamine [Toradol] MEDS 04/03/18 04:39 Discontinued 60 mg IVP ONCE STA Ondansetron HCl/Pf [Zofran 4 mg/2 ml] MEDS 04/03/18 06:04 Discontinued 4 mg IVP ONCE STA Sodium Chloride 0.9% [Sodium Chloride] 1,000 ml MEDS 04/03/18 06:[address] ABD/PEL WO RENAL STONE PROT Stat RADS 04/03/18 04:49 Completed Medications Generic Name Dose Route Start Last Admin Trade Name Freq PRN Reason Stop Dose Admin Sodium Chloride 1,000 mls @ 1,000 mls/hr 04/03/18 06:04 04/03/18 06:09 Sodium Chloride IV 04/03/18 07:03 1,000 mls/hr BOLUS STA Administration Sodium Chloride 1 syr 04/03/18 04:38 04/03/18 06:09 Saline Flush IVF 1 syr PRN PRN Administration To flush IV Discontinued Medications Generic Name Dose Route Start Last Admin Trade Name Freq PRN Reason Stop Dose Admin Ketorolac Tromethamine 60 mg 04/03/18 04:39 04/03/18 04:51 Toradol IVP 04/03/18 04:40 60 mg ONCE STA Administration Ondansetron HCl 4 mg 04/03/18 06:04 04/03/18 06:09 Zofran 4 Mg/2 Ml IVP 04/03/18 06:05 4 mg ONCE STA Administration Vital Signs: Temp Pulse Resp BP Pulse Ox 04/03/18 04:14 98.2 F 90 16 140/95 H 94 L Departure - Departure Time of Disposition: 06:30 Disposition: HOME SELF-CARE Discharge Problem: URI (upper respiratory infection) Instructions: Upper Respiratory Infection in Children (ED) Condition: Good Pt referred to PMD for follow-up: Yes IPMP verified?: No Prescriptions: Prednisolone [Millipred] 2.5 mg PO BID #30 ml NS Allergies/Adverse Reactions: Allergies amoxicillin Adverse Reaction (Verified 04/03/18 04:17) Penicillins Adverse Reaction (Verified 04/03/18 04:17) Home Medications: Ambulatory Orders Prednisolone [Millipred] 2.5 mg PO BID #30 ml NS 04/03/18
[2018-04-03] MEDS ORDERED: ZOFRAN 4 MG/2 ML IVP STA (06:04)
[2018-04-03] MEDS ORDERED: SODIUM CHLORIDE 1,000 ML IV STA (06:04)
== END 2018-04-03 09:40 | disposition home or self-care (01) ==
LOC: ED 04:14
DX: R10.30 Lower abdominal pain, unspecified (principal); R50.9 Fever, unspecified; R11.0 Nausea; Z72.0 Tobacco use; J06.9 Acute upper respiratory infection, unspecified
CPT/HCPCS: 36415; 74176; 80053; 81001; 82150; 84702; 85025; 87086; 96361; 96374; 96375; 99283